=== PATIENT | male | born 1990 | race Caucasian/White ===

== ENCOUNTER 2019-06-01 13:06 | Emergency (ER) | payer OTHER ==
[2019-06-01 13:32] VITALS: BP 127/72
--- NOTE | 2019-06-01 13:55 | UC ---
Nausea/Vomiting/Diarrhea HPI - HPI Summary HPI Summary: 28-year-old male presents with 5 day history of watery diarrhea. Associated with some mild nausea and abdominal cramping that is relieved after defecation. States he has been having 5-6 stools per day although today he has only had 2 episodes. Took a couple doses of Pepto-Bismol at the onset of symptoms without effect. No recent travel out of the country, consumption of raw or undercooked meat or seafood, or recent antibiotic use. Denies fever, chills, weakness, dizziness, lightheadedness, vomiting, blood in stool, or melena. - History of Current Complaint Chief Complaint: UCAbdominalPain Stated Complaint: DIGESTION ISSUES Time Seen by Provider: 06/01/19 13:48 Hx Obtained From: Patient Pain Intensity: 2 - Allergies/Home Medications Allergies/Adverse Reactions: Allergies Allergy/AdvReac Type Severity Reaction Status Date / Time codeine Allergy gi Verified 06/01/19 13:33 upset/vomiting Home Medications: Home Medications Fluticasone NASAL SPRAY 50MCG* [Flonase NASAL SPRAY 50MCG*] 1 spray .ROUTE DAILY 06/01/19 [History Confirmed 06/01/19] PMH/Surg Hx/FS Hx/Imm Hx Previously Healthy: Yes - Denies significant PMH - Surgical History Surgical History: None - Family History Known Family History: Positive: Non-Contributory - Social History Occupation: Employed Full-time Lives: Alone Alcohol Use: Occasionally Substance Use Type: None Smoking Status (MU): Never Smoked Tobacco Review of Systems All Other Systems Reviewed And Are Negative: Yes Constitutional: Negative: Fever, Chills Respiratory: Positive: Negative Cardiovascular: Positive: Negative Gastrointestinal: Positive: Abdominal Pain, Diarrhea, Nausea. Negative: Vomiting Genitourinary: Positive: Negative Musculoskeletal: Positive: Negative Neurological: Positive: Negative Is Patient Immunocompromised?: No Physical Exam - Summary Physical Exam Summary: GENERAL APPEARANCE: Well developed, well nourished, alert and cooperative, and appears to be in no acute distress. EYES: Conjunctiva clear. No drainage. EARS: External auditory canals and tympanic membranes clear, hearing grossly intact. NOSE: No nasal discharge. THROAT: Pharynx normal No tonsilar inflammation, swelling, exudate, or lesions. Uvula midline. NECK: Neck supple, non-tender without lymphadenopathy. CARDIAC: Normal S1 and S2. No S3, S4 or murmurs. Rhythm is regular. There is no peripheral edema, cyanosis or pallor. Extremities are warm and well perfused. Capillary refill is less than 2 seconds. Peripheral pulses intact. LUNGS: Clear to auscultation without rales, rhonchi, wheezing or diminished breath sounds. ABDOMEN: Positive bowel sounds. Soft, nondistended, nontender. No guarding or rebound. No masses or hepatosplenomegally. MUSKULOSKELETAL: ROM intact to all extremities. No joint erythema or tenderness. Normal muscular development. Normal gait. SKIN: Skin normal color, texture and turgor with no lesions or eruptions. Triage Information Reviewed: Yes Vital Signs: Initial Vital Signs Temp 98 F 06/01/19 13:30 Pulse 72 06/01/19 13:30 Resp 18 06/01/19 13:30 BP 127/72 06/01/19 13:30 Pulse Ox 100 06/01/19 13:30 Vital Signs Reviewed: Yes Naus/Vom/Diarrhea Course/Dx - Course Course Of Treatment: 28-year-old male presents with 5 day history of watery diarrhea. Associated with some mild nausea and abdominal cramping that is relieved after defecation. States he has been having 5-6 stools per day although today he has only had 2 episodes. Took a couple doses of Pepto-Bismol at the onset of symptoms without effect. No recent travel out of the country, consumption of raw or undercooked meat or seafood, or recent antibiotic use. Denies fever, chills, weakness, dizziness, lightheadedness, vomiting, blood in stool, or melena. Afebrile. Vital signs stable. Patient had an overall unremarkable exam including a soft nontender abdomen with normal bowel sounds. Discussed with the patient that with the absence of fever or bloody stools that acute diarrhea tends to be self limiting and I'm simply recommending continued symptomatic care at this time. He is to follow-up with his primary care provider in 2-3 days if symptoms are not improving. Anticipatory guidance and warning symptoms were reviewed with the patient. Verbalizes understanding and agrees with plan of care. - Differential Dx/Diagnosis Differential Diagnoses - Male: Diverticulitis, Irritable Bowel Syndrome, Enterocolitis, Ulcerative Colitis/Crohn's Disease, Gastroenteritis (Viral), Gastroenteritis (Bacterial), Diarrhea Provider Diagnosis: Acute diarrhea Condition At Discharge: Stable Discharge ED - Sign-Out/Discharge Documenting (check all that apply): Patient Departure All imaging exams completed and their final reports reviewed: No Studies - Discharge Plan Condition: Stable Disposition: HOME Patient Education Materials: Acute Diarrhea (ED) Referrals: No Primary Care Phys,[facility] [Primary Care Provider] - [facility] [Outside] Additional Instructions: Acute diarrhea typically resolves on its own without treatment over 2-3 days. The most important consideration with diarrhea is avoiding dehydration. Be sure to drink plenty of fluids. Avoid beverages containing caffeine or artificial sweeteners as these can worsen symptoms. Be sure to eat a well balanced diet. Boiled starches and cereals (potatoes, rice , cream of wheat, oatmeal) as well as food such as crackers, toast, bananas, soups and boiled vegetables are usually recommended if you are having watery diarrhea. Be sure to use good hand hygiene to prevent spreading infection. Use an over the counter pain medication such as acetaminophen (Tylenol) or ibuprofen (Advil, Motrin) according to directions as needed for aches and pains. Return here or follow up with your primary care provider in 3-5 days if symptoms persist. Seek immediate medical attention in the emergency room if you have fever greater than 100.5 F, have severe abdominal pain, persistent vomiting, blood in your vomit or stool, you become weak or dizzy, or have any worsening of symptoms. - Billing Disposition and Condition Condition: STABLE Disposition: Home
== END 2019-06-01 14:22 | disposition home or self-care (01) ==
LOC: UCEAST 13:06
DX: R19.7 Diarrhea, unspecified (principal); R11.0 Nausea; R10.9 Unspecified abdominal pain; Z88.5 Allergy status to narcotic agent
CPT/HCPCS: 99211; G0463